=== PATIENT | female | born 1950 | race Caucasian/White ===

== ENCOUNTER → 2023-06-09 16:06 | Outpatient (REF) | payer MEDICARE, SELFPAY | LOC: WDC 16:06 | PROVIDERS: ATTENDING PHYSICIAN Family Medicine | DX: Z12.31 Encounter for screening mammogram for malignant neoplasm of breast (principal) | CPT/HCPCS: 77063; 77067 ==

== ENCOUNTER 2023-07-26 07:53 | Emergency (ER) | payer MEDICARE, SELFPAY ==
[2023-07-26 08:03] VITALS: BP 155/107
[2023-07-26 08:28] LABS: % Basophils 0.7 % (0-2); % Eosinophils 2.7 % (0-6); % Immature Granulocytes 0.2 % (0-0.5); % Lymphocytes 18.9 % (20.5-51.1); % Monocytes 8.7 % (1.7-9.3); % Neutrophils 68.8 % (42.2-75.2); Absolute Eosinophils 0.1 10^3/uL (0-0.7); Absolute Lymphocytes 0.8 10^3/uL (1.2-3.4); Absolute Monocytes 0.4 10^3/uL (0.1-0.6); Absolute Neutrophils 2.8 10^3/uL (1.4-6.5); Hematocrit 40.8 % (37.0-47.0); Hemoglobin 14.3 g/dL (12.0-16.0); Mean Corpuscular Volume 85.5 fL (81.0-99.0); Nucleated Red Blood Cells % 0 %; Platelet Count 155 10^3/uL (130-400); Red Blood Cell Count 4.77 10^6/uL (4.20-5.40); Red Cell Dist. Width 13.2 % (11.5-14.5); White Blood Cell Count 4.1 10^3/uL (4.8-10.8)
[2023-07-26 08:29] LABS: Urine Albumin Negative (Neg - Trace); Urine Bilirubin Negative (Negative); Urine Character Clear (Clear); Urine Color Yellow; Urine Glucose Negative (Negative); Urine Ketone Negative (Negative); Urine Leukocyte 2+ (Negative); Urine Nitrite Negative (Negative); Urine Occult Blood Negative (Negative); Urine Urobilinogen Negative (Neg - 1+)
[2023-07-26 08:44] LABS: ALT (SGPT) 22 U/L (0-35); AST (SGOT) 31 U/L (14-36); Albumin 4.8 g/dl (3.5-5.0); Alkaline Phosphatase 74 U/L (38-126); Blood Urea Nitrogen 12 mg/dl (7-17); Calcium 10.2 mg/dl (8.4-10.2); Carbon Dioxide 30 mmol/L (22-30); Chloride 103 mmol/L (98-107); Glucose 125 mg/dl (70-99); Potassium 4.8 mmol/L (3.5-5.1); Sodium 141 mmol/L (135-145); Total Bilirubin 0.7 mg/dl (0.2-1.3); Total Protein 8.5 g/dl (6.3-8.2); eGFR > 60.00
[2023-07-26 08:45] LABS: Urine Bacteria Moderate (Negative); Urine Red Blood Cell 0-2 /HPF (0-2); Urine Squamous Cell 0-2 /LPF (Few); Urine White Cell 30-40 /HPF (0-5)
--- NOTE | 2023-07-26 11:03 | ED.GENMED ---
Addendum entered and electronically signed by Ezra Wren PA-C 07/28/23 07:13:
Urine culture demonstrates greater than 100,000 colony-forming units of gram-negative bacilli. Patient placed on Keflex. Sensitivities pending
Original Note:
History of Present Illness
General
Chief Complaint: Back Pain
Time Seen by Provider: 07/26/23 11:00
Travel History
Have you had any contact with someone who has COVID-19?: No
Do you have any symptoms of coronavirus? Fever > 100 degrees, chills, cough, shortness of breath, sore throat, loss of taste or smell, muscle aches, or headache?: No
History of Present Illness
History of Present Illness:
72-year-old female history of Crohn's disease, GERD presenting with low back pain starting 4 days ago. Patient's states that patient lifts her grandchildren frequently. Patient otherwise denies any recent falls or other heavy lifting.
Patient denies numbness, weakness, tingling, incontinence, dysuria, hematuria, fever, chills, nausea, or vomiting. Patient states that she has been using a heating pad with some relief.
Past History
Past History
ED Past Medical History: Other (Sarcoid Crohn's)
ED Past Surgical History: Gynecological
Social History
Tobacco: Non-smoker
Alcohol: None
Drug: None
Personal:
Living: with family
Employment: Retired
Family History
Family History: Other (Noncontributory)
Phy Exam
Physical Exam
Physical Exam:
General: Alert, no acute distress
Head: NCAT
Eyes: clear conjunctiva
Neck: supple
Cardiac: regular rate and rhythm, no murmur
Lungs: clear to auscultation bilaterally. No wheezes, rales, or rhonchi. Speaking full unlabored sentences. No respiratory distress.
Abdomen: soft, nondistended nontender. No rebound or guarding. No CVA tenderness bilaterally
MSK: no lower extremity edema bilaterally. No deformity. Bilateral lumbar paraspinal tenderness to palpation with increased tonicity. No midline tenderness to palpation.
Skin: warm, dry
Neuro: Alert and oriented x3. no focal deficits. 5-5 strength bilateral hip/knee/ankle flexion extension. Ambulatory with steady gait. Sensation intact bilateral lower extremities
Course
Orders/Labs/Results
Orders:
Orders
07/26/23 08:17
Complete Blood Count/With Diff Urgent
Comprehensive Metabolic Panel Urgent
Urinalysis Reflex To Culture Urgent
Date Specimen was Collected: 07/26/23
Time Specimen was Collected: 08:06
Urine Microscopic Reflex Cult Urgent
Urine Culture Urgent
MAMADOU Source: U
Specimen Description:
Date Specimen was Collected: 07/26/23
Time Specimen was Collected: 08:06
07/26/23 11:02
CefTRIAXone [Rocephin] 1,000 mg IV NOW STA
07/26/23 11:15
Acetaminophen [Tylenol] 1,000 mg PO NOW STA
Cephalexin Monohydrate [Keflex] 500 mg PO NOW STA
Cyclobenzaprine HCl [Flexeril] 10 mg PO NOW STA
07/26/23 11:30
Lidocaine [Lidocaine 4% Patch] 1 patch TOPICAL DAILY
07/26/23 13:48
Oxycodone/Acetaminophen [Percocet 5/325] 1 tablet PO NOW STA
Abnormal Lab Results
07/26/23
08:17
WBC 4.1 L 10^3/uL
(4.8-10.8)
Absolute Lymphs (auto) 0.8 L 10^3/uL
(1.2-3.4)
Lymphocytes % 18.9 L %
(20.5-51.1)
Creatinine 0.5 L mg/dL
(0.6-1.0)
Glucose 125 H mg/dl
(70-99)
Total Protein 8.5 H g/dl
(6.3-8.2)
Leukocyte Esterase Rfl 2+ A
(Negative)
Urine WBC (Reflex) 30-40 A /HPF
(0-5)
Urine Bacteria (Reflex) Moderate A
(Negative)
07/26/23 08:17
07/26/23 08:17
Vital Signs
Initial and Last Documented VS:
Initial Vital Signs
Temp Pulse Resp BP Pulse Ox
98.0 F 104 16 155/107 98
07/26/23 08:03 07/26/23 08:03 07/26/23 08:03 07/26/23 08:03 07/26/23 08:03
Last Documented Vital Signs
Temp Pulse Resp BP Pulse Ox
98.0 F 104 16 155/107 98
07/26/23 08:03 07/26/23 08:03 07/26/23 08:03 07/26/23 08:03 07/26/23 08:03
MDM/Problems Addressed
MDM/Problems Addressed:
Patient presents to the Emergency Department with ____low back pain
Number and Complexity of Problems Addressed at the Encounter
� Chronic conditions affecting care:
� Acute Exacerbation and/or Progression of Chronic Illness:
� Differential Diagnosis includes: Muscle strain, UTI. Low suspicion for cauda equina given neurologically intact, no midline tenderness. Low suspicion for pyelonephritis given no CVA tenderness bilaterally.
Amount and/or Complexity of Data to be Reviewed and Analyzed
� I performed an independent evaluation of and my interpretation is:
EKG:
CT:
Xrays:
Laboratory Studies: WBC 4.1 (baseline), creatinine within normal limits. Electrolytes within normal limits. UA consistent with UTI.
Other:
� Review of other/old records reveals:
� Clinical information was obtained by an independent historian:
� Prescriptions/Medications Considered but not given:
� Further testing considered but not performed:
Risk of Complications and/or Morbidity or Mortality of Patient Management
� Social Determinants of health affecting care:
� Discussion with other providers (PCP, Hospitalists, Consultants, etc):
� Escalation of care including admission/observation vs risk of discharge considered: 72-year-old female presenting with low back pain worse with movement for the past 4 days. Neurologically intact, no red flags. Vitals stable. Will treat for
muscular strain with Tylenol, Flexeril, lidocaine patch. UA consistent with UTI, ordered Keflex. On reevaluation, patient reports improvement in pain, ambulatory with steady gait, neurologically intact. Stable for discharge home with PCP follow up
*Critical Care Note
Total Time (30-74mins, 75-104mins- exclusive of procedures): Not Applicable
ED Attending Note
-
Portions of this chart may have been created with voice recognition software.� Occasional wrong word or��sound alike� substitutions may have occurred due to the inherent limitations of voice recognition software.
Discharge Plan
Departure
Patient Disposition: Home (Routine Discharge)
Date of Disposition: 07/26/23
Time of Disposition: 13:48
Patient with high blood pressure during this ER visit?: Yes
Discharge Problem:
Low back pain, Urinary tract infection
Instructions: Low Back Pain (DC), Urinary Tract Infection, Adult ED, BLOOD PRESSURE
Prescriptions:
New
cephalexin 500 mg capsule
500 mg PO TID 10 Days Qty: 30 0RF
cyclobenzaprine 5 mg tablet
5 mg PO TID PRN (Reason: muscle spasm) Qty: 20 0RF
lidocaine 5 % adhesive patch,medicated
1 patch topical DAILY Qty: 30 0RF
No Action
acetaminophen [Tylenol Extra Strength] 500 MG tablet
1,000 mg PO BID
famotidine 20 MG tablet
20 mg PO DAILYPRN PRN (Reason: gerd)
famotidine 20 MG tablet
20 mg PO HS
mesalamine 1,000 MG suppository
1,000 mg [place] HS
vedolizumab [Entyvio] 300 MG/5 ML recon soln
300 mg IV Q28D
sucralfate 1 GM/10 ML suspension
1 gm PO ACHS Qty: 38 0RF
erythromycin 1 APPLIC ointment
1 applic ophthalmic (eye) QID Qty: 1 0RF
pantoprazole 40 MG tablet,delayed release (DR/EC)
40 mg PO DAILY Qty: 30 0RF
amoxicillin-pot clavulanate 1 TABLET tablet
1 tab PO Q12 4 Days Qty: 8 0RF
Referrals:
Dalia Tinsley MD [Family Provider] -
Activity Restrictions/Additional Instructions:
Take Keflex 3 times daily for 10 days
Take Tylenol 975mg every 6 hours as needed for pain
Take Flexeril as needed for muscle spasm
Use lidocaine patch over low back. If too expensive, over the counter lidocaine patches can be cheaper
Follow up with primary care doctor in 1-2 days
Return to the emergency department for fever, persistent vomiting or new/worsening symptoms
Interventions
Interventions:
*Risk Screen - Suicide Last Done: 07/26/23 14:18
*General Assessment Last Done: 07/26/23 14:18
*Neglect/Abuse Screening Last Done: 07/26/23 14:19
*ED COVID-19 Vaccine History Last Done: 07/26/23 08:03
*Nursing Disposition Last Done: 07/26/23 14:18
ED-Musculoskeletal Assessment Last Done: 07/26/23 11:30
Discharge Date and Time
Discharge Date/Time: 07/26/23 14:19
Print Language: JORDANIAN
[2023-07-26] MEDS: TYLENOL 1000 MG PO (11:29)
[2023-07-26] MEDS: LIDOCAINE 4% PATCH 1 PATCH TOPICAL (11:29)
[2023-07-26] MEDS: KEFLEX 500 MG PO (11:29)
[2023-07-26] MEDS: FLEXERIL 10 MG PO (11:29)
[2023-07-26] MEDS: PERCOCET 5/325 1 TABLET PO (14:05)
== END 2023-07-26 14:19 | disposition home or self-care (01) ==
LOC: EMR 07:53
PROVIDERS: Emergency Medicine; EMERGENCY PHYSICIAN Emergency Medicine; FAMILY PHYSICIAN Family Medicine
DX: M54.50 Low back pain, unspecified (principal); N39.0 Urinary tract infection, site not specified; K21.9 Gastro-esophageal reflux disease without esophagitis; K50.90 Crohn's disease, unspecified, without complications
CPT/HCPCS: 99283; 80053; 81003; 81015; 85025; 87077; 87086; 87186

== ENCOUNTER → 2023-09-20 09:24 | Outpatient (REF) | payer MEDICARE, SELFPAY ==
[2023-09-20 11:10] LABS: ALT (SGPT) 15 U/L (0-35); AST (SGOT) 25 U/L (14-36); Albumin 4.3 g/dl (3.5-5.0); Alkaline Phosphatase 62 U/L (38-126); Blood Urea Nitrogen 14 mg/dl (7-17); Calcium 9.5 mg/dl (8.4-10.2); Carbon Dioxide 27 mmol/L (22-30); Chloride 105 mmol/L (98-107); Glucose 108 mg/dl (70-99); Potassium 4.5 mmol/L (3.5-5.1); Sodium 139 mmol/L (135-145); Total Bilirubin 0.6 mg/dl (0.2-1.3); Total Protein 7.3 g/dl (6.3-8.2); eGFR > 60.00
[2023-09-20 11:16] LABS: Erythrocyte Sed Rate 11 mm/hour (0-20)
[2023-09-20 11:19] LABS: Total Iron Binding Capacity 282 ug/dl (265-497)
[2023-09-20 11:43] LABS: Vitamin D, 25-OH*** 28.8 ng/mL (30-80)
[2023-09-20 14:17] LABS: Ferritin 40.9 ng/ml (11.1-264.0)
[2023-09-20 14:31] LABS: Vitamin B12 354 pg/ml (239-931)
[2023-09-20 20:40] LABS: Hepatitis B Surface Antigen Negative (Negative)
[2023-09-20 20:58] LABS: Hepatitis B Core Ab, Total Negative (Negative); Hepatitis B Surface Antibody Positive
== END ==
LOC: REG 09:24
PROVIDERS: ATTENDING PHYSICIAN Internal Medicine Gastroenterology; FAMILY PHYSICIAN Family Medicine
DX: K50.119 Crohn's disease of large intestine with unspecified complications (principal); Z86.2 Personal history of diseases of the blood and blood-forming organs and certain disorders involving the immune mechanism; D51.9 Vitamin B12 deficiency anemia, unspecified
CPT/HCPCS: 36415; 80053; 82306; 82607; 82728; 83550; 85652; 86140; 86704; 86706; 87340

== ENCOUNTER → 2023-09-29 15:29 | Outpatient (REF) | payer MEDICARE, SELFPAY ==
[2023-10-02 16:34] LABS: Calprotectin, Fecal 529 ug/g (<=49)
== END ==
LOC: REG 15:29
PROVIDERS: ATTENDING PHYSICIAN Internal Medicine Gastroenterology; FAMILY PHYSICIAN Family Medicine
DX: K50.119 Crohn's disease of large intestine with unspecified complications (principal)
CPT/HCPCS: 36415; 83993

== ENCOUNTER → 2023-11-25 20:22 | Outpatient (REF) | payer MEDICARE, SELFPAY | LOC: MRI 3T 20:22 | PROVIDERS: ATTENDING PHYSICIAN Physician Assistant Medical; FAMILY PHYSICIAN Family Medicine | DX: M48.062 Spinal stenosis, lumbar region with neurogenic claudication (principal); M41.50 Other secondary scoliosis, site unspecified | CPT/HCPCS: 72148 ==

== ENCOUNTER → 2023-12-13 06:51 | Outpatient (REF) | payer MEDICARE, SELFPAY ==
[2023-12-13 08:17] LABS: % Basophils 0.6 % (0-2); % Eosinophils 5.3 % (0-6); % Immature Granulocytes 0.6 % (0-0.5); % Lymphocytes 21.9 % (20.5-51.1); % Monocytes 10.7 % (1.7-9.3); % Neutrophils 60.9 % (42.2-75.2); Absolute Eosinophils 0.2 10^3/uL (0-0.7); Absolute Lymphocytes 0.7 10^3/uL (1.2-3.4); Absolute Monocytes 0.4 10^3/uL (0.1-0.6); Absolute Neutrophils 2.1 10^3/uL (1.4-6.5); Hematocrit 35.3 % (37.0-47.0); Hemoglobin 12.2 g/dL (12.0-16.0); Mean Corp Hgb Conc. 34.6 g/dL (33.0-37.0); Mean Corpuscular Hgb 30.1 pg (27.0-31.0); Mean Corpuscular Volume 87.2 fL (81.0-99.0); Mean Platelet Volume 9.1 fL (7.4-10.4); Nucleated Red Blood Cells % 0 %; Platelet Count 154 10^3/uL (130-400); Red Blood Cell Count 4.05 10^6/uL (4.20-5.40); Red Cell Dist. Width 13.1 % (11.5-14.5); White Blood Cell Count 3.4 10^3/uL (4.8-10.8)
[2023-12-13 08:50] LABS: ALT (SGPT) 17 U/L (0-35); AST (SGOT) 23 U/L (14-36); Albumin 4.1 g/dl (3.5-5.0); Alkaline Phosphatase 45 U/L (38-126); Blood Urea Nitrogen 12 mg/dl (7-17); Calcium 9.4 mg/dl (8.4-10.2); Carbon Dioxide 29 mmol/L (22-30); Chloride 104 mmol/L (98-107); Glucose 121 mg/dl (70-99); Potassium 4.1 mmol/L (3.5-5.1); Sodium 143 mmol/L (135-145); Total Bilirubin 0.4 mg/dl (0.2-1.3); Total Protein 7.2 g/dl (6.3-8.2); eGFR > 60.00
[2023-12-13 09:28] LABS: Vitamin D, 25-OH*** 31.4 ng/mL (30-80)
[2023-12-13 12:06] LABS: Erythrocyte Sed Rate 16 mm/hour (0-20)
[2023-12-13 13:03] LABS: Rheumatoid Agglutinin Less Than 10 IU (<10 IU)
[2023-12-13 21:26] LABS: Hepatitis B Surface Antigen Negative (Negative)
[2023-12-13 21:45] LABS: Hepatitis B Core Ab, Total Negative (Negative); Hepatitis B Surface Antibody Positive; Hepatitis C Antibody Negative (Negative)
[2023-12-14 13:40] LABS: CCP Antibody IgG/IgA 10 Units (0-19)
[2023-12-14 15:05] LABS: ANA, IgG Reflex to HEp-2 None Detected (None Detected)
[2023-12-14 17:19] LABS: Angiotensin-1-converting Enzym 114 U/L (16-85)
[2023-12-15 00:52] LABS: Quantiferon Mitogen minus NIL 4.81 IU/mL; Quantiferon NIL 0.23 IU/mL; Quantiferon Plus TB2 minus NIL 0.01 IU/mL (<=0.34); Quantiferon TB Gold Plus Negative (Negative)
[2023-12-15 02:59] LABS: Vitamin D 1,25 Dihydroxy 73.7 pg/mL (19.9-79.3)
== END ==
LOC: RAD 06:51
PROVIDERS: ATTENDING PHYSICIAN Student in an Organized Health Care Education/Training Program; FAMILY PHYSICIAN Family Medicine
DX: D86.9 Sarcoidosis, unspecified (principal); J84.9 Interstitial pulmonary disease, unspecified; K21.9 Gastro-esophageal reflux disease without esophagitis; K50.90 Crohn's disease, unspecified, without complications; M54.59 Other low back pain; M85.80 Other specified disorders of bone density and structure, unspecified site; R79.89 Other specified abnormal findings of blood chemistry; Z78.0 Asymptomatic menopausal state; Z82.49 Family history of ischemic heart disease and other diseases of the circulatory system
CPT/HCPCS: 36415; 72052; 72202; 80053; 82164; 82306; 82652; 85025; 85549; 85652; 86038; 86140; 86200; 86430; 86480; 86704; 86706; 86803; 87340

== ENCOUNTER → 2023-12-31 12:40 | Outpatient (REF) | payer MEDICARE, SELFPAY ==
[2023-12-31 14:30] LABS: Erythrocyte Sed Rate 18 mm/hour (0-20); Vitamin D, 25-OH*** 27.7 ng/mL (30-80)
== END ==
LOC: REG 12:40
PROVIDERS: ATTENDING PHYSICIAN Student in an Organized Health Care Education/Training Program; FAMILY PHYSICIAN Family Medicine
DX: D86.9 Sarcoidosis, unspecified (principal); J84.9 Interstitial pulmonary disease, unspecified; K21.9 Gastro-esophageal reflux disease without esophagitis; K50.90 Crohn's disease, unspecified, without complications; M54.2 Cervicalgia; M54.59 Other low back pain; M85.80 Other specified disorders of bone density and structure, unspecified site; R79.89 Other specified abnormal findings of blood chemistry; Z78.0 Asymptomatic menopausal state; Z82.49 Family history of ischemic heart disease and other diseases of the circulatory system
CPT/HCPCS: 36415; 82164; 82306; 82652; 85549; 85652; 86140

== ENCOUNTER → 2024-01-05 08:59 | Outpatient (REF) | payer MEDICARE, SELFPAY | LOC: HWRAD 08:59 | PROVIDERS: ATTENDING PHYSICIAN Student in an Organized Health Care Education/Training Program; FAMILY PHYSICIAN Family Medicine | DX: M85.80 Other specified disorders of bone density and structure, unspecified site (principal); D86.9 Sarcoidosis, unspecified; J84.9 Interstitial pulmonary disease, unspecified; M85.89 Other specified disorders of bone density and structure, multiple sites | CPT/HCPCS: 71046; 77080 ==

== ENCOUNTER → 2024-03-23 14:07 | Outpatient (REF) | payer MEDICARE, SELFPAY | LOC: REG 14:07 | PROVIDERS: ATTENDING PHYSICIAN Physician Assistant; FAMILY PHYSICIAN Family Medicine | DX: K50.119 Crohn's disease of large intestine with unspecified complications (principal) | CPT/HCPCS: 83993 ==

== ENCOUNTER → 2024-05-08 17:25 | Outpatient (REF) | payer MEDICARE, SELFPAY | LOC: MRI 3T 17:25 | PROVIDERS: ATTENDING PHYSICIAN Internal Medicine Gastroenterology; FAMILY PHYSICIAN Family Medicine | DX: K86.9 Disease of pancreas, unspecified (principal) | CPT/HCPCS: 74183; A9575 ==

== ENCOUNTER → 2024-05-26 11:11 | Outpatient (REF) | payer MEDICARE, SELFPAY ==
[2024-05-26 12:12] LABS: % Basophils 0.6 % (0-2); % Eosinophils 4.1 % (0-6); % Immature Granulocytes 0.3 % (0-0.5); % Lymphocytes 24.4 % (20.5-51.1); % Monocytes 9.1 % (1.7-9.3); % Neutrophils 61.5 % (42.2-75.2); Absolute Eosinophils 0.1 10^3/uL (0-0.7); Absolute Lymphocytes 0.8 10^3/uL (1.2-3.4); Absolute Monocytes 0.3 10^3/uL (0.1-0.6); Absolute Neutrophils 2.1 10^3/uL (1.4-6.5); Mean Corp Hgb Conc. 34.2 g/dL (33.0-37.0); Mean Corpuscular Hgb 29.7 pg (27.0-31.0); Mean Platelet Volume 8.9 fL (7.4-10.4); Nucleated Red Blood Cells % 0 %; Platelet Count 152 10^3/uL (130-400); Red Blood Cell Count 4.37 10^6/uL (4.20-5.40); Red Cell Dist. Width 13.5 % (11.5-14.5); White Blood Cell Count 3.4 10^3/uL (4.8-10.8)
[2024-05-26 12:36] LABS: ALT (SGPT) 19 U/L (0-35); AST (SGOT) 26 U/L (14-36); Albumin 4.7 g/dl (3.5-5.0); Alkaline Phosphatase 55 U/L (38-126); Blood Urea Nitrogen 11 mg/dl (7-17); Calcium 9.8 mg/dl (8.4-10.2); Carbon Dioxide 28 mmol/L (22-30); Chloride 104 mmol/L (98-107); Glucose 103 mg/dl (70-99); Potassium 4.7 mmol/L (3.5-5.1); Sodium 142 mmol/L (135-145); Total Bilirubin 0.8 mg/dl (0.2-1.3); Total Protein 7.9 g/dl (6.3-8.2); eGFR > 60.00
[2024-05-26 13:03] LABS: TSH Reflex To Free T4 1.26 uIU/ml (0.47-4.68)
[2024-05-27 09:37] LABS: Intact PTH 34.3 pg/ml (13.6-85.8)
== END ==
LOC: REG 11:11
PROVIDERS: ATTENDING PHYSICIAN Student in an Organized Health Care Education/Training Program; FAMILY PHYSICIAN Family Medicine
DX: D86.9 Sarcoidosis, unspecified (principal); J84.9 Interstitial pulmonary disease, unspecified; K21.9 Gastro-esophageal reflux disease without esophagitis; K50.90 Crohn's disease, unspecified, without complications; M54.2 Cervicalgia; M54.59 Other low back pain; M81.0 Age-related osteoporosis without current pathological fracture; M85.80 Other specified disorders of bone density and structure, unspecified site; R79.89 Other specified abnormal findings of blood chemistry; Z78.0 Asymptomatic menopausal state; Z82.49 Family history of ischemic heart disease and other diseases of the circulatory system
CPT/HCPCS: 36415; 80053; 83970; 84443; 85025

== ENCOUNTER → 2024-07-19 08:16 | Outpatient (REF) | payer MEDICARE, SELFPAY | LOC: REG 08:16 | PROVIDERS: ATTENDING PHYSICIAN Internal Medicine Gastroenterology | DX: K50.119 Crohn's disease of large intestine with unspecified complications (principal) | CPT/HCPCS: 36415 ==

== ENCOUNTER → 2024-11-06 09:15 | Outpatient (REF) | payer MEDICARE, SELFPAY ==
[2024-11-06 10:49] LABS: ALT (SGPT) 19 U/L (0-35); AST (SGOT) 25 U/L (14-36); Albumin 4.4 g/dl (3.5-5.0); Alkaline Phosphatase 49 U/L (38-126); Blood Urea Nitrogen 13 mg/dl (7-17); Calcium 9.4 mg/dl (8.4-10.2); Carbon Dioxide 29 mmol/L (22-30); Chloride 104 mmol/L (98-107); Glucose 116 mg/dl (70-99); HDL Cholesterol 51 mg/dl; LDL Cholesterol, Calculated 139 mg/dl; Potassium 4.7 mmol/L (3.5-5.1); Sodium 139 mmol/L (135-145); Total Protein 7.6 g/dl (6.3-8.2); Very Low Density Lipoprotein 26 mg/dl (0-30); eGFR > 60.00
[2024-11-06 14:56] LABS: Glycohemoglobin (HgbA1c) 5.3 % (4.0-5.6)
== END ==
LOC: REG 09:15
PROVIDERS: ATTENDING PHYSICIAN Family Medicine
DX: E78.5 Hyperlipidemia, unspecified (principal); R73.01 Impaired fasting glucose; R73.09 Other abnormal glucose
CPT/HCPCS: 36415; 80053; 80061; 83036

== ENCOUNTER → 2024-11-09 13:28 | Outpatient (REF) | payer MEDICARE, SELFPAY | LOC: HWRAD 13:28 | PROVIDERS: ATTENDING PHYSICIAN Family Medicine; OTHER PHYSICIAN Internal Medicine Cardiovascular Disease; REFERRING PHYSICIAN Student in an Organized Health Care Education/Training Program | DX: I65.22 Occlusion and stenosis of left carotid artery (principal) | CPT/HCPCS: 93880 ==

== ENCOUNTER 2024-11-13 06:29 | Day surgery (SDC) | payer MEDICARE, SELFPAY | END 2024-11-13 08:56 | disposition home or self-care (01) | LOC: GI 06:29 | PROVIDERS: ATTENDING PHYSICIAN Internal Medicine Gastroenterology | DX: K50.10 Crohn's disease of large intestine without complications (principal); K57.30 Diverticulosis of large intestine without perforation or abscess without bleeding; K62.89 Other specified diseases of anus and rectum | CPT/HCPCS: 45380; 88305 ==

== ENCOUNTER → 2025-01-16 09:41 | Outpatient (REF) | payer MEDICARE, SELFPAY ==
[2025-01-16 13:34] LABS: Hepatitis B Surface Antigen Negative (Negative)
== END ==
LOC: REG 09:41
PROVIDERS: ATTENDING PHYSICIAN Internal Medicine Gastroenterology; FAMILY PHYSICIAN Family Medicine; REFERRING PHYSICIAN Student in an Organized Health Care Education/Training Program
DX: K50.119 Crohn's disease of large intestine with unspecified complications (principal)
CPT/HCPCS: 36415; 86480; 86706; 87340

== ENCOUNTER → 2025-02-07 09:32 | Outpatient (REF) | payer MEDICARE, SELFPAY ==
[2025-02-07 11:24] LABS: ALT (SGPT) 18 U/L (0-35); AST (SGOT) 25 U/L (14-36); Albumin 4.6 g/dl (3.5-5.0); Alkaline Phosphatase 56 U/L (38-126); Blood Urea Nitrogen 13 mg/dl (7-17); Calcium 9.7 mg/dl (8.4-10.2); Carbon Dioxide 28 mmol/L (22-30); Chloride 103 mmol/L (98-107); Glucose 122 mg/dl (70-99); Potassium 4.8 mmol/L (3.5-5.1); Sodium 138 mmol/L (135-145); Total Protein 8.2 g/dl (6.3-8.2); eGFR > 60.00
== END ==
LOC: REG 09:32
PROVIDERS: ATTENDING PHYSICIAN Student in an Organized Health Care Education/Training Program; FAMILY PHYSICIAN Family Medicine
DX: M81.0 Age-related osteoporosis without current pathological fracture (principal)
CPT/HCPCS: 36415; 80053